=== PATIENT | male | born 1940 | race Caucasian/White ===

== ENCOUNTER 2018-02-12 01:54 | Inpatient (IN) | payer OTHER, MEDICARE ==
[~2018-02-12] VITALS: Ht 182.9 cm; Wt 91.3 kg
[2018-02-12 02:18] LABS: BASOPHILS ABSOLUTE AUTO 0.01 K/mm3 (0.00-0.23); BASOPHILS PERCENT AUTO 0 % (0-2); EOSINOPHILS ABSOLUTE AUTO 0.06 K/mm3 (0.00-0.68); EOSINOPHILS PERCENT AUTO 1 % (0-6); Hematocrit 48.3 % (37.0-53.0); Hemoglobin 16.1 g/dL (13.5-17.5); IMMATURE GRAN ABSOLUTE AUTO 0.01 K/mm3 (0.00-0.10); IMMATURE GRAN PERCENT AUTO 0 % (0-1); LYMPHOCYTES ABSOLUTE AUTO 0.83 K/mm3 (0.84-5.20); LYMPHOCYTES PERCENT AUTO 11 % (21-46); MONOCYTES ABSOLUTE AUTO 0.23 K/mm3 (0.16-1.47); MONOCYTES PERCENT AUTO 3 % (4-13); Mean Corpuscular HGB 31.6 pg (26.0-34.0); Mean Corpuscular HGB Conc 33.3 g/dL (31.5-36.5); Mean Corpuscular Volume 95 fL (80-100); Mean Platelet Volume 10.5 fL (9.1-12.4); NEUTROPHILS PERCENT AUTO 85 % (41-73); Platelet Count 138 K/mm3 (150-400); RDW Coefficient Variation 12.2 % (11.7-14.2); RDW Standard Deviation 42.4 fL (35.1-46.3); Red Blood Cell Count 5.09 M/mm3 (4.30-5.90); White Blood Cell Count 7.44 K/mm3 (4.00-11.30)
[2018-02-12 02:31] LABS: Alanine Aminotransfer (ALT/SGP 348 U/L (12-78); Albumin, Blood 3.7 g/dL (3.4-5.0); Albumin/Globulin Ratio 0.9 (0.8-1.8); Alk Phos 160 U/L (50-136); Anion Gap 7 mmol/L (6-16); Aspartate Aminotrans (AST/SGOT 512 U/L (12-37); Blood Urea Nitrogen 17 mg/dL (8-24); Bun/Creatinine Ratio 8.5 (12.0-20.0); CO2, Blood 31 mmol/L (21-32); Chloride, Blood 97 mmol/L (98-108); Creatinine, Blood 2.01 mg/dL (0.60-1.20); Ethanol (Alcohol), Blood, Med <3 mg/dL; Globulin, Blood 4.2 g/dL (2.2-4.0); Glomerular Filtration Rate 34 (60-); Glucose, Blood 128 mg/dL (70-99); Potassium, Blood 4.6 mmol/L (3.5-5.5); Sodium, Blood 135 mmol/L (136-145); Total Protein, Blood 7.9 g/dL (6.4-8.2); Troponin I <0.015 ng/mL (0.000-0.040)
[2018-02-12 02:35] LABS: Calcium, Ionized (POC) 0.84 mmol/L (1.10-1.46); Chloride (POC) 101 mmol/L (98-108); Creatinine (POC) 1.5 mg/dL (0.8-1.3); Glucose (ISTAT POC) 131 mg/dL (70-99); Hemoglobin (POC) 13.6 g/dL (13.5-17.5); Potassium (POC) 3.4 mmol/L (3.5-5.5); Sodium (POC) 144 mmol/L (135-148); Total CO2 (POC) 21 mmol/L (21-32)
[2018-02-12 02:36] LABS: International Normalized Ratio 1.04; Prothrombin Time Results 10.7 Sec (9.7-11.5)
[2018-02-12 02:37] LABS: PCO2 Arterial 40.3 mmHg (35-45); PO2 Arterial 71.4 mmHg (80-100); pH Blood Arterial 7.45 (7.35-7.45)
[2018-02-12] MEDS ORDERED: ATOR40TA PO (03:00)
[2018-02-12] MEDS ORDERED: CARV6.25 PO (03:01)
[2018-02-12] MEDS ORDERED: GABA800 PO (03:03)
[2018-02-12] MEDS ORDERED: HUMALOG KW200 UNIT/1 SC (03:04)
[2018-02-12] MEDS ORDERED: INSULANPEN SC (03:05)
[2018-02-12] MEDS ORDERED: PARO20 PO (03:07)
[2018-02-12] MEDS ORDERED: HEARTBURN RELI150 M1 PO (03:08)
[2018-02-12 03:09] LABS: Source, Urine Catheter
[2018-02-12] MEDS ORDERED: ZOLP5 PO (03:09)
[2018-02-12 03:12] LABS: Bilirubin, Urine Neg (Neg); Blood, Urine Neg (Neg); Glucose Qualitative, Urine Neg (Neg); Ketones, Urine Neg (Neg); Leukocyte Esterase, Urine Neg (Neg); Nitrite, Urine Neg (Neg); Protein, Urine Neg (Neg); Urobilinogen, Urine NORM (Normal)
[2018-02-12 03:13] LABS: Appearance, Urine Clear (Clear); Color, Urine Yellow (P-Yellow)
[2018-02-12 03:29] LABS: U Amphetamine Screen Not Detected; U Barbituate Screen Not Detected; U Benzodiazapine Screen Not Detected; U Buprenorphine Screen Not Detected; U Cannabinoids Screen DETECTED; U Cocaine Screen Not Detected; U Methadone Screen Not Detected; U Methamphetamine Screen Not Detected; U Opiates Screen Not Detected; U Oxycodone Screen Not Detected; U Phencyclidine Screen Not Detected; U Propoxyphene Screen Not Detected
[2018-02-12 07:42] LABS: Hematocrit 42.9 % (37.0-53.0); Hemoglobin 14.4 g/dL (13.5-17.5); Mean Corpuscular HGB 31.7 pg (26.0-34.0); Mean Corpuscular HGB Conc 33.6 g/dL (31.5-36.5); Mean Corpuscular Volume 95 fL (80-100); Mean Platelet Volume 10.8 fL (9.1-12.4); Platelet Count 120 K/mm3 (150-400); RDW Coefficient Variation 12.4 % (11.7-14.2); RDW Standard Deviation 42.9 fL (35.1-46.3); Red Blood Cell Count 4.54 M/mm3 (4.30-5.90)
[2018-02-12 07:59] LABS: Albumin, Blood 2.9 g/dL (3.4-5.0); Albumin/Globulin Ratio 0.9 (0.8-1.8); Bilirubin, Total 3.1 mg/dL (0.1-1.0); Bun/Creatinine Ratio 8.6 (12.0-20.0); Calcium, Blood 7.4 mg/dL (8.5-10.1); Creatinine, Blood 1.86 mg/dL (0.60-1.20); Globulin, Blood 3.3 g/dL (2.2-4.0); Potassium, Blood 4.1 mmol/L (3.5-5.5); Total Protein, Blood 6.2 g/dL (6.4-8.2)
[2018-02-13 04:00] LABS: Hematocrit 44.8 % (37.0-53.0); Hemoglobin 14.6 g/dL (13.5-17.5); Mean Corpuscular HGB 30.9 pg (26.0-34.0); Mean Corpuscular HGB Conc 32.6 g/dL (31.5-36.5); Mean Corpuscular Volume 95 fL (80-100); Mean Platelet Volume 11.2 fL (9.1-12.4); Platelet Count 104 K/mm3 (150-400); RDW Coefficient Variation 12.8 % (11.7-14.2); RDW Standard Deviation 44.3 fL (35.1-46.3); Red Blood Cell Count 4.72 M/mm3 (4.30-5.90); White Blood Cell Count 10.06 K/mm3 (4.00-11.30)
[2018-02-13 04:13] LABS: Vancomycin, Trough 10.5 ug/mL (5.0-10.0)
[2018-02-13 04:14] LABS: Alanine Aminotransfer (ALT/SGP 230 U/L (12-78); Albumin, Blood 2.5 g/dL (3.4-5.0); Albumin/Globulin Ratio 0.7 (0.8-1.8); Alk Phos 115 U/L (50-136); Anion Gap 8 mmol/L (6-16); Aspartate Aminotrans (AST/SGOT 150 U/L (12-37); Bilirubin, Total 4.4 mg/dL (0.1-1.0); Blood Urea Nitrogen 14 mg/dL (8-24); Bun/Creatinine Ratio 8.1 (12.0-20.0); CO2, Blood 23 mmol/L (21-32); CPK Creatine Kinase 65 U/L (39-308); Calcium, Blood 7.4 mg/dL (8.5-10.1); Chloride, Blood 110 mmol/L (98-108); Creatinine, Blood 1.73 mg/dL (0.60-1.20); Globulin, Blood 3.7 g/dL (2.2-4.0); Glomerular Filtration Rate 41 (60-); Glucose, Blood 103 mg/dL (70-99); Magnesium, Blood 1.9 mg/dL (1.6-2.4); Phosphorus, Blood 2.1 mg/dL (2.5-4.9); Potassium, Blood 4.2 mmol/L (3.5-5.5); Sodium, Blood 141 mmol/L (136-145); Total Protein, Blood 6.2 g/dL (6.4-8.2); Troponin I <0.015 ng/mL (0.000-0.040)
[2018-02-13 04:20] LABS: BAND PERCENT MAN 1 % (0-8); BASOPHILS PERCENT MAN 0 % (0-2); EOSINOPHILS PERCENT MAN 3 % (0-6); LYMPHOCYTES PERCENT MAN 9 % (21-46); METAMYELOCYTE PERCENT MAN 1 % (0-0); MONOCYTES PERCENT MAN 3 % (4-13); NEUTROPHILS ABSOLUTE MAN 8.45 K/mm3 (1.96-9.15); SEG NEUTROPHILS PERCENT MAN 83 % (41-73); TOTAL CELLS COUNTED 100
[2018-02-13 05:18] LABS: PCO2 Arterial 42.6 mmHg (35-45); PO2 Arterial 65.9 mmHg (80-100); pH Blood Arterial 7.36 (7.35-7.45)
[2018-02-14 04:53] LABS: PCO2 Arterial 46.8 mmHg (35-45); PO2 Arterial 67.4 mmHg (80-100); pH Blood Arterial 7.32 (7.35-7.45)
[2018-02-14 05:10] LABS: BASOPHILS ABSOLUTE AUTO 0.02 K/mm3 (0.00-0.23); BASOPHILS PERCENT AUTO 0 % (0-2); EOSINOPHILS ABSOLUTE AUTO 0.12 K/mm3 (0.00-0.68); EOSINOPHILS PERCENT AUTO 2 % (0-6); Hematocrit 42.1 % (37.0-53.0); Hemoglobin 13.7 g/dL (13.5-17.5); IMMATURE GRAN ABSOLUTE AUTO 0.02 K/mm3 (0.00-0.10); IMMATURE GRAN PERCENT AUTO 0 % (0-1); LYMPHOCYTES ABSOLUTE AUTO 1.17 K/mm3 (0.84-5.20); LYMPHOCYTES PERCENT AUTO 14 % (21-46); MONOCYTES ABSOLUTE AUTO 0.54 K/mm3 (0.16-1.47); MONOCYTES PERCENT AUTO 7 % (4-13); Mean Corpuscular HGB 31.4 pg (26.0-34.0); Mean Corpuscular HGB Conc 32.5 g/dL (31.5-36.5); Mean Corpuscular Volume 96 fL (80-100); Mean Platelet Volume 11.3 fL (9.1-12.4); NEUTROPHILS ABSOLUTE AUTO 6.39 K/mm3 (1.96-9.15); NEUTROPHILS PERCENT AUTO 77 % (41-73); Platelet Count 102 K/mm3 (150-400); RDW Coefficient Variation 12.5 % (11.7-14.2); RDW Standard Deviation 44.6 fL (35.1-46.3); Red Blood Cell Count 4.37 M/mm3 (4.30-5.90); White Blood Cell Count 8.26 K/mm3 (4.00-11.30)
[2018-02-14 05:42] LABS: Alanine Aminotransfer (ALT/SGP 160 U/L (12-78); Albumin, Blood 2.7 g/dL (3.4-5.0); Albumin/Globulin Ratio 0.7 (0.8-1.8); Alk Phos 120 U/L (50-136); Anion Gap 9 mmol/L (6-16); Aspartate Aminotrans (AST/SGOT 132 U/L (12-37); Bilirubin, Total 3.3 mg/dL (0.1-1.0); Blood Urea Nitrogen 15 mg/dL (8-24); Bun/Creatinine Ratio 8.7 (12.0-20.0); CO2, Blood 22 mmol/L (21-32); Calcium, Blood 7.7 mg/dL (8.5-10.1); Chloride, Blood 109 mmol/L (98-108); Creatinine, Blood 1.73 mg/dL (0.60-1.20); Globulin, Blood 3.7 g/dL (2.2-4.0); Glomerular Filtration Rate 41 (60-); Glucose, Blood 112 mg/dL (70-99); Phosphorus, Blood 2.7 mg/dL (2.5-4.9); Potassium, Blood 4.2 mmol/L (3.5-5.5); Sodium, Blood 140 mmol/L (136-145); Total Protein, Blood 6.4 g/dL (6.4-8.2); Vancomycin, Trough 11.3 ug/mL (5.0-10.0)
[2018-02-15 04:25] LABS: BASOPHILS ABSOLUTE AUTO 0.01 K/mm3 (0.00-0.23); BASOPHILS PERCENT AUTO 0 % (0-2); EOSINOPHILS ABSOLUTE AUTO 0.07 K/mm3 (0.00-0.68); EOSINOPHILS PERCENT AUTO 1 % (0-6); Hematocrit 41.1 % (37.0-53.0); Hemoglobin 13.8 g/dL (13.5-17.5); IMMATURE GRAN ABSOLUTE AUTO 0.02 K/mm3 (0.00-0.10); IMMATURE GRAN PERCENT AUTO 0 % (0-1); LYMPHOCYTES ABSOLUTE AUTO 1.47 K/mm3 (0.84-5.20); LYMPHOCYTES PERCENT AUTO 19 % (21-46); MONOCYTES ABSOLUTE AUTO 0.61 K/mm3 (0.16-1.47); MONOCYTES PERCENT AUTO 8 % (4-13); Mean Corpuscular HGB 31.7 pg (26.0-34.0); Mean Corpuscular HGB Conc 33.6 g/dL (31.5-36.5); Mean Corpuscular Volume 94 fL (80-100); Mean Platelet Volume 11.2 fL (9.1-12.4); NEUTROPHILS PERCENT AUTO 72 % (41-73); Platelet Count 113 K/mm3 (150-400); RDW Coefficient Variation 12.4 % (11.7-14.2); RDW Standard Deviation 43.2 fL (35.1-46.3); Red Blood Cell Count 4.36 M/mm3 (4.30-5.90); White Blood Cell Count 7.68 K/mm3 (4.00-11.30)
[2018-02-15 04:41] LABS: Albumin, Blood 2.8 g/dL (3.4-5.0); Albumin/Globulin Ratio 0.7 (0.8-1.8); Bilirubin, Total 2.9 mg/dL (0.1-1.0); Bun/Creatinine Ratio 10.2 (12.0-20.0); Calcium, Blood 7.9 mg/dL (8.5-10.1); Creatinine, Blood 1.76 mg/dL (0.60-1.20); Globulin, Blood 4.1 g/dL (2.2-4.0); Magnesium, Blood 1.9 mg/dL (1.6-2.4); Phosphorus, Blood 2.4 mg/dL (2.5-4.9); Potassium, Blood 3.6 mmol/L (3.5-5.5); Total Protein, Blood 6.9 g/dL (6.4-8.2)
[2018-02-16 04:22] LABS: BASOPHILS ABSOLUTE AUTO 0.03 K/mm3 (0.00-0.23); BASOPHILS PERCENT AUTO 1 % (0-2); EOSINOPHILS ABSOLUTE AUTO 0.12 K/mm3 (0.00-0.68); EOSINOPHILS PERCENT AUTO 2 % (0-6); Hematocrit 41.7 % (37.0-53.0); Hemoglobin 13.8 g/dL (13.5-17.5); IMMATURE GRAN ABSOLUTE AUTO 0.01 K/mm3 (0.00-0.10); IMMATURE GRAN PERCENT AUTO 0 % (0-1); LYMPHOCYTES PERCENT AUTO 26 % (21-46); MONOCYTES ABSOLUTE AUTO 0.66 K/mm3 (0.16-1.47); MONOCYTES PERCENT AUTO 10 % (4-13); Mean Corpuscular HGB 30.8 pg (26.0-34.0); Mean Corpuscular HGB Conc 33.1 g/dL (31.5-36.5); Mean Corpuscular Volume 93 fL (80-100); Mean Platelet Volume 11.1 fL (9.1-12.4); NEUTROPHILS ABSOLUTE AUTO 3.94 K/mm3 (1.96-9.15); NEUTROPHILS PERCENT AUTO 61 % (41-73); Platelet Count 128 K/mm3 (150-400); RDW Coefficient Variation 12.2 % (11.7-14.2); RDW Standard Deviation 42.2 fL (35.1-46.3); Red Blood Cell Count 4.48 M/mm3 (4.30-5.90); White Blood Cell Count 6.46 K/mm3 (4.00-11.30)
[2018-02-16 04:41] LABS: Bun/Creatinine Ratio 9.3 (12.0-20.0); Calcium, Blood 8.4 mg/dL (8.5-10.1); Creatinine, Blood 1.51 mg/dL (0.60-1.20); Potassium, Blood 3.6 mmol/L (3.5-5.5)
[2018-02-17 04:40] LABS: Bun/Creatinine Ratio 10.6 (12.0-20.0); Calcium, Blood 8.2 mg/dL (8.5-10.1); Creatinine, Blood 1.42 mg/dL (0.60-1.20); Potassium, Blood 3.4 mmol/L (3.5-5.5)
[2018-02-17] MEDS ORDERED: AMOX875 PO (11:30)
[2018-02-17] MEDS ORDERED: FURO20 PO (11:31)
== END 2018-02-17 15:45 | disposition home or self-care (01) | DRG 871 ==
LOC: ER 01:54 → ICUW 03:36 → PCU 03:36 → ICUW 04:30 → PCU 02-15 17:25
PROVIDERS: Emergency Medicine; Hospitalist; Internal Medicine; Internal Medicine Critical Care Medicine
PROC: 0BH17EZ Insertion of Endotracheal Airway into Trachea, Via Natural or Artificial Opening (ICD-10-PCS; principal; 2018-02-12)
PROC: 5A1935Z Respiratory Ventilation, Less than 24 Consecutive Hours (ICD-10-PCS; 2018-02-12)
PROC: 02HV33Z Insertion of Infusion Device into Superior Vena Cava, Percutaneous Approach (ICD-10-PCS; 2018-02-12)
PROC: B548ZZA Ultrasonography of Superior Vena Cava, Guidance (ICD-10-PCS; 2018-02-12)
DX: A40.3 Sepsis due to Streptococcus pneumoniae (principal); J69.0 Pneumonitis due to inhalation of food and vomit; R65.21 Severe sepsis with septic shock; J96.01 Acute respiratory failure with hypoxia; I50.20 Unspecified systolic (congestive) heart failure; I13.0 Hypertensive heart and chronic kidney disease with heart failure and stage 1 through stage 4 chronic kidney disease, or unspecified chronic kidney disease; E87.2 Acidosis; N17.9 Acute kidney failure, unspecified; N18.3 Chronic kidney disease, stage 3 (moderate); I25.10 Atherosclerotic heart disease of native coronary artery without angina pectoris; E11.22 Type 2 diabetes mellitus with diabetic chronic kidney disease; E78.5 Hyperlipidemia, unspecified; E11.40 Type 2 diabetes mellitus with diabetic neuropathy, unspecified; F32.9 Major depressive disorder, single episode, unspecified; I25.5 Ischemic cardiomyopathy; F41.9 Anxiety disorder, unspecified; E66.9 Obesity, unspecified; I25.2 Old myocardial infarction; Z86.73 Personal history of transient ischemic attack (TIA), and cerebral infarction without residual deficits; Z79.4 Long term (current) use of insulin; Z79.899 Other long term (current) drug therapy; Z88.8 Allergy status to other drugs, medicaments and biological substances; Z68.26 Body mass index [BMI] 26.0-26.9, adult
CPT/HCPCS: 31500; 31720; 36415; 36556; 36600; 51702; 70450; 71045; 71275; 74175; 74176; 76705; 80047; 80048; 80053; 80202; 81003; 82140; 82330; 82533; 82550; 82803; 82947; 83605; 83690; 83735; 83880; 84100; 84484; 85007; 85014; 85025; 85027; 85610; 86850; 86900; 86901; 87040; 87070; 87077; 87186; 87205; 92610; 93005; 93010; 93306; 94002; 94003; 94640; 94667; 94760; 96361; 96365; 96367; 96375; 97110; 97116; 97161; 97165; 99291-25; 99292; C1751; C9113; G0480; G8978; G8979; G8987; G8988; G8989; G8996; G8997; G8998; J0295; J0456; J0610; J0696; J1650; J1940; J1956; J2060; J2543; J3010; J3370; J3480; J7030; J7050; J7060; Q9967

== ENCOUNTER 2018-03-13 02:51 | Inpatient (IN) | payer OTHER, MEDICARE ==
[~2018-03-13] VITALS: Ht 177.8 cm; Wt 89.9 kg
[~2018-03-13 02:51] MED LIST: AMOX875 PO; ATOR40TA PO; CARV6.25 PO; FURO20 PO; GABA800 PO; HEARTBURN RELI150 M1 PO; HUMALOG KW200 UNIT/1 SC; INSULANPEN SC; PARO20 PO; ZOLP5 PO
[2018-03-13 03:07] LABS: PCO2 Arterial 53.3 mmHg (35-45); PO2 Arterial 159 mmHg (80-100); pH Blood Arterial 7.28 (7.35-7.45)
[2018-03-13 03:08] LABS: BASOPHILS ABSOLUTE AUTO 0.02 K/mm3 (0.00-0.23); BASOPHILS PERCENT AUTO 0 % (0-2); EOSINOPHILS ABSOLUTE AUTO 0.11 K/mm3 (0.00-0.68); EOSINOPHILS PERCENT AUTO 1 % (0-6); Hematocrit 47.7 % (37.0-53.0); Hemoglobin 15.4 g/dL (13.5-17.5); IMMATURE GRAN ABSOLUTE AUTO 0.03 K/mm3 (0.00-0.10); IMMATURE GRAN PERCENT AUTO 0 % (0-1); LYMPHOCYTES ABSOLUTE AUTO 0.86 K/mm3 (0.84-5.20); LYMPHOCYTES PERCENT AUTO 10 % (21-46); MONOCYTES ABSOLUTE AUTO 0.69 K/mm3 (0.16-1.47); MONOCYTES PERCENT AUTO 8 % (4-13); Mean Corpuscular HGB 31.2 pg (26.0-34.0); Mean Corpuscular HGB Conc 32.3 g/dL (31.5-36.5); Mean Corpuscular Volume 97 fL (80-100); Mean Platelet Volume 10.9 fL (9.1-12.4); NEUTROPHILS ABSOLUTE AUTO 6.75 K/mm3 (1.96-9.15); NEUTROPHILS PERCENT AUTO 80 % (41-73); Platelet Count 116 K/mm3 (150-400); RDW Coefficient Variation 12.5 % (11.7-14.2); RDW Standard Deviation 45.2 fL (35.1-46.3); Red Blood Cell Count 4.93 M/mm3 (4.30-5.90); White Blood Cell Count 8.46 K/mm3 (4.00-11.30)
[2018-03-13] MEDS ORDERED: CEPH500 PO (03:19)
[2018-03-13] MEDS ORDERED: Bactrim Ds Tab1 EACH PO (03:20)
[2018-03-13 03:26] LABS: Alanine Aminotransfer (ALT/SGP 115 U/L (12-78); Albumin, Blood 3.3 g/dL (3.4-5.0); Albumin/Globulin Ratio 0.7 (0.8-1.8); Alk Phos 112 U/L (50-136); Anion Gap 10 mmol/L (6-16); Aspartate Aminotrans (AST/SGOT 78 U/L (12-37); Bilirubin, Total 0.9 mg/dL (0.1-1.0); Blood Urea Nitrogen 16 mg/dL (8-24); Bun/Creatinine Ratio 7.7 (12.0-20.0); CO2, Blood 24 mmol/L (21-32); Calcium, Blood 7.9 mg/dL (8.5-10.1); Chloride, Blood 99 mmol/L (98-108); Creatinine, Blood 2.09 mg/dL (0.60-1.20); Globulin, Blood 4.6 g/dL (2.2-4.0); Glomerular Filtration Rate 33 (60-); Glucose, Blood 222 mg/dL (70-99); Potassium, Blood 5.2 mmol/L (3.5-5.5); Sodium, Blood 133 mmol/L (136-145); Total Protein, Blood 7.9 g/dL (6.4-8.2); Troponin I <0.015 ng/mL (0.000-0.040)
[2018-03-13 05:05] LABS: Hematocrit 46.4 % (37.0-53.0); Mean Corpuscular HGB 31.5 pg (26.0-34.0); Mean Corpuscular HGB Conc 32.3 g/dL (31.5-36.5); Mean Corpuscular Volume 98 fL (80-100); Mean Platelet Volume 10.8 fL (9.1-12.4); Platelet Count 120 K/mm3 (150-400); RDW Coefficient Variation 12.6 % (11.7-14.2); RDW Standard Deviation 45.5 fL (35.1-46.3); Red Blood Cell Count 4.76 M/mm3 (4.30-5.90); White Blood Cell Count 9.78 K/mm3 (4.00-11.30)
[2018-03-13 05:21] LABS: Albumin, Blood 3.2 g/dL (3.4-5.0); Albumin/Globulin Ratio 0.7 (0.8-1.8); Bilirubin, Total 0.7 mg/dL (0.1-1.0); Creatinine, Blood 2.38 mg/dL (0.60-1.20); Globulin, Blood 4.3 g/dL (2.2-4.0); Potassium, Blood 5.4 mmol/L (3.5-5.5); Total Protein, Blood 7.5 g/dL (6.4-8.2)
[2018-03-13 05:26] LABS: CPK Creatine Kinase 250 U/L (39-308)
[2018-03-13 05:29] LABS: Influenza A Negative (NEGATIVE); Influenza B Negative (NEGATIVE)
[2018-03-13 08:12] LABS: Source, Urine Catheter
[2018-03-13 08:22] LABS: Bilirubin, Urine Neg (Neg); Blood, Urine 1+ (Neg); Glucose Qualitative, Urine 2+ (Neg); Ketones, Urine Neg (Neg); Leukocyte Esterase, Urine Neg (Neg); Nitrite, Urine Neg (Neg); Protein, Urine 2+ (Neg); Specific Gravity, Urine 1.015 (1.003-1.022); Urobilinogen, Urine NORM (Normal)
[2018-03-13 08:39] LABS: U Amphetamine Screen Not Detected; U Barbituate Screen Not Detected; U Benzodiazapine Screen Not Detected; U Buprenorphine Screen Not Detected; U Cannabinoids Screen DETECTED; U Cocaine Screen Not Detected; U Methadone Screen Not Detected; U Methamphetamine Screen Not Detected; U Opiates Screen Not Detected; U Oxycodone Screen Not Detected; U Phencyclidine Screen Not Detected; U Propoxyphene Screen Not Detected
[2018-03-13 08:41] LABS: Appearance, Urine Hazy (Clear); Color, Urine Yellow (P-Yellow)
[2018-03-13 08:49] LABS: Spermatozoa Few /hpf
[2018-03-13 08:50] LABS: Red Blood Cells, Urine 0-2 /hpf (0-2); White Blood Cells, Urine 0-2 /hpf (0-5)
[2018-03-13 08:53] LABS: Bacteria Few /hpf; Squamous Epithelial Cells Rare /hpf (Few)
[2018-03-13 08:54] LABS: Amorphous Light (0-Heavy)
[2018-03-13 09:45] LABS: PCO2 Arterial 56.2 mmHg (35-45); PO2 Arterial 122 mmHg (80-100)
[2018-03-13 16:00] LABS: PCO2 Arterial 52.3 mmHg (35-45); PO2 Arterial 79.7 mmHg (80-100); pH Blood Arterial 7.32 (7.35-7.45)
[2018-03-14 04:50] LABS: PCO2 Arterial 48.3 mmHg (35-45); PO2 Arterial 56.2 mmHg (80-100); pH Blood Arterial 7.36 (7.35-7.45)
[2018-03-14 05:51] LABS: BASOPHILS ABSOLUTE AUTO 0.03 K/mm3 (0.00-0.23); BASOPHILS PERCENT AUTO 0 % (0-2); EOSINOPHILS ABSOLUTE AUTO 0.12 K/mm3 (0.00-0.68); EOSINOPHILS PERCENT AUTO 1 % (0-6); Hematocrit 42.1 % (37.0-53.0); Hemoglobin 13.6 g/dL (13.5-17.5); IMMATURE GRAN ABSOLUTE AUTO 0.04 K/mm3 (0.00-0.10); IMMATURE GRAN PERCENT AUTO 0 % (0-1); LYMPHOCYTES ABSOLUTE AUTO 1.37 K/mm3 (0.84-5.20); LYMPHOCYTES PERCENT AUTO 14 % (21-46); MONOCYTES ABSOLUTE AUTO 0.94 K/mm3 (0.16-1.47); MONOCYTES PERCENT AUTO 10 % (4-13); Mean Corpuscular HGB 31.7 pg (26.0-34.0); Mean Corpuscular HGB Conc 32.3 g/dL (31.5-36.5); Mean Corpuscular Volume 98 fL (80-100); Mean Platelet Volume 10.8 fL (9.1-12.4); NEUTROPHILS ABSOLUTE AUTO 7.29 K/mm3 (1.96-9.15); NEUTROPHILS PERCENT AUTO 75 % (41-73); Platelet Count 97 K/mm3 (150-400); RDW Coefficient Variation 12.7 % (11.7-14.2); RDW Standard Deviation 45.6 fL (35.1-46.3); Red Blood Cell Count 4.29 M/mm3 (4.30-5.90); White Blood Cell Count 9.79 K/mm3 (4.00-11.30)
[2018-03-14 06:18] LABS: Albumin, Blood 2.8 g/dL (3.4-5.0); Anion Gap 5 mmol/L (6-16); Blood Urea Nitrogen 19 mg/dL (8-24); Bun/Creatinine Ratio 9.4 (12.0-20.0); CO2, Blood 26 mmol/L (21-32); Calcium, Blood 7.9 mg/dL (8.5-10.1); Chloride, Blood 104 mmol/L (98-108); Creatinine, Blood 2.02 mg/dL (0.60-1.20); Glomerular Filtration Rate 34 (60-); Glucose, Blood 106 mg/dL (70-99); Phosphorus, Blood 2.3 mg/dL (2.5-4.9); Potassium, Blood 4.5 mmol/L (3.5-5.5); Sodium, Blood 135 mmol/L (136-145)
[2018-03-15 06:23] LABS: BASOPHILS ABSOLUTE AUTO 0.01 K/mm3 (0.00-0.23); BASOPHILS PERCENT AUTO 0 % (0-2); EOSINOPHILS ABSOLUTE AUTO 0.18 K/mm3 (0.00-0.68); EOSINOPHILS PERCENT AUTO 2 % (0-6); Hematocrit 43.3 % (37.0-53.0); IMMATURE GRAN ABSOLUTE AUTO 0.03 K/mm3 (0.00-0.10); IMMATURE GRAN PERCENT AUTO 0 % (0-1); LYMPHOCYTES ABSOLUTE AUTO 1.23 K/mm3 (0.84-5.20); LYMPHOCYTES PERCENT AUTO 13 % (21-46); MONOCYTES ABSOLUTE AUTO 1.01 K/mm3 (0.16-1.47); MONOCYTES PERCENT AUTO 10 % (4-13); Mean Corpuscular HGB 31.7 pg (26.0-34.0); Mean Corpuscular HGB Conc 32.3 g/dL (31.5-36.5); Mean Corpuscular Volume 98 fL (80-100); NEUTROPHILS ABSOLUTE AUTO 7.41 K/mm3 (1.96-9.15); NEUTROPHILS PERCENT AUTO 75 % (41-73); Platelet Count 99 K/mm3 (150-400); RDW Coefficient Variation 12.7 % (11.7-14.2); RDW Standard Deviation 45.8 fL (35.1-46.3); Red Blood Cell Count 4.42 M/mm3 (4.30-5.90); White Blood Cell Count 9.87 K/mm3 (4.00-11.30)
[2018-03-15 06:53] LABS: Anion Gap 7 mmol/L (6-16); Blood Urea Nitrogen 16 mg/dL (8-24); Bun/Creatinine Ratio 9.2 (12.0-20.0); CO2, Blood 26 mmol/L (21-32); Calcium, Blood 8.2 mg/dL (8.5-10.1); Chloride, Blood 102 mmol/L (98-108); Creatinine, Blood 1.74 mg/dL (0.60-1.20); Glomerular Filtration Rate 41 (60-); Glucose, Blood 125 mg/dL (70-99); Phosphorus, Blood 2.3 mg/dL (2.5-4.9); Potassium, Blood 4.4 mmol/L (3.5-5.5); Sodium, Blood 135 mmol/L (136-145)
[2018-03-15 12:39] LABS: PCO2 Arterial 44.3 mmHg (35-45); PO2 Arterial 63.7 mmHg (80-100); pH Blood Arterial 7.42 (7.35-7.45)
[2018-03-15] MEDS ORDERED: GABA300 PO (13:54)
[2018-03-15] MEDS ORDERED: LEVO750 PO (13:54)
[2018-03-15] MEDS ORDERED: ALBU2.5V5 NEB (13:55)
[2018-03-15] MEDS ORDERED: ASPI81CH PO (13:56)
[2018-03-15] MEDS ORDERED: ALBU90OI INH (13:56)
[2018-03-15] MEDS ORDERED: FLUT1DIS5 INH (13:57)
[2018-03-15] MEDS ORDERED: GABA100 PO (13:58)
[2018-03-15] MEDS ORDERED: METF500C PO (13:59)
== END 2018-03-15 15:12 | disposition home or self-care (01) | DRG 193 ==
LOC: ER 02:51 → MEDS 05:18 → ERHOLD 05:18 → ICUW 05:18 → MEDS 06:59 → ICUW 07:22 → MEDS 17:30
PROVIDERS: Emergency Medicine; Family Medicine; Internal Medicine
DX: J18.9 Pneumonia, unspecified organism (principal); J96.01 Acute respiratory failure with hypoxia; G93.40 Encephalopathy, unspecified; J96.02 Acute respiratory failure with hypercapnia; E87.2 Acidosis; N17.9 Acute kidney failure, unspecified; E87.1 Hypo-osmolality and hyponatremia; J44.1 Chronic obstructive pulmonary disease with (acute) exacerbation; J44.0 Chronic obstructive pulmonary disease with (acute) lower respiratory infection; E11.42 Type 2 diabetes mellitus with diabetic polyneuropathy; Z87.01 Personal history of pneumonia (recurrent); Z87.891 Personal history of nicotine dependence; I25.2 Old myocardial infarction; E78.5 Hyperlipidemia, unspecified; Z79.4 Long term (current) use of insulin; J44.9 Chronic obstructive pulmonary disease, unspecified; S61.012D Laceration without foreign body of left thumb without damage to nail, subsequent encounter; E86.0 Dehydration; E11.65 Type 2 diabetes mellitus with hyperglycemia; R79.89 Other specified abnormal findings of blood chemistry; N18.3 Chronic kidney disease, stage 3 (moderate); E11.22 Type 2 diabetes mellitus with diabetic chronic kidney disease; I12.9 Hypertensive chronic kidney disease with stage 1 through stage 4 chronic kidney disease, or unspecified chronic kidney disease
CPT/HCPCS: 36415; 36600; 70450; 71045; 71046; 78582; 80053; 80069; 81001; 82140; 82550; 82803; 82947; 83605; 83880; 84145; 84484; 85025; 85027; 85379; 87804; 92610; 93005; 93010; 93970; 94760; 96374; 99285-25; A9540; A9558; C9113; G8996; G8997; G8998; J1650; J1956; J2405; J2550; J7030

== ENCOUNTER 2021-04-04 13:32 | Emergency (ER) | payer OTHER ==
[~2021-04-04 13:32] MED LIST changes: +ALBU2.5V5 NEB; +ALBU90OI INH; +ASPI81CH PO; +Bactrim Ds Tab1 EACH PO; +CEPH500 PO; +FLUT1DIS5 INH; +GABA100 PO; +GABA300 PO; -INSULANPEN SC; +LEVO750 PO; +METF500C PO; +NOVOLIN 70100 UNIT/3 SC; +OMEP20ER PO
[2021-04-04] MEDS ORDERED: OXYC5 PO (18:33)
[2021-04-04] MEDS ORDERED: ATOR20 PO (18:33)
[2021-04-05] MEDS ORDERED: OMEP20ER PO (21:48)
== END 2021-04-04 13:50 | disposition left against medical advice (07) ==
LOC: ER 13:32
DX: Z53.21 Procedure and treatment not carried out due to patient leaving prior to being seen by health care provider (principal)

== ENCOUNTER 2021-04-04 16:33 | Inpatient (IN) | payer OTHER ==
[~2021-04-04] VITALS: Ht 177.8 cm; Wt 88.5 kg
[2021-04-04 17:15] LABS: BASOPHILS ABSOLUTE AUTO 0.04 K/mm3 (0.00-0.23); BASOPHILS PERCENT AUTO 0 % (0-2); EOSINOPHILS ABSOLUTE AUTO 0.09 K/mm3 (0.00-0.68); EOSINOPHILS PERCENT AUTO 1 % (0-6); Hematocrit 45.7 % (37.0-53.0); Hemoglobin 15.3 g/dL (13.5-17.5); IMMATURE GRAN ABSOLUTE AUTO 0.06 K/mm3 (0.00-0.10); IMMATURE GRAN PERCENT AUTO 0 % (0-1); LYMPHOCYTES PERCENT AUTO 12 % (21-46); MONOCYTES ABSOLUTE AUTO 0.77 K/mm3 (0.16-1.47); MONOCYTES PERCENT AUTO 6 % (4-13); Mean Corpuscular HGB 30.7 pg (26.0-34.0); Mean Corpuscular HGB Conc 33.5 g/dL (31.5-36.5); Mean Corpuscular Volume 92 fL (80-100); Mean Platelet Volume 10.5 fL (9.1-12.4); NEUTROPHILS ABSOLUTE AUTO 11.09 K/mm3 (1.96-9.15); NEUTROPHILS PERCENT AUTO 81 % (41-73); Platelet Count 207 K/mm3 (150-400); RDW Coefficient Variation 12.7 % (11.7-14.2); RDW Standard Deviation 42.7 fL (35.1-46.3); Red Blood Cell Count 4.99 M/mm3 (4.30-5.90); White Blood Cell Count 13.75 K/mm3 (4.00-11.30)
[2021-04-04 17:20] LABS: Source, Urine Clean Catch
[2021-04-04 17:31] LABS: Albumin, Blood 3.5 g/dL (3.4-5.0); Albumin/Globulin Ratio 0.7 (0.8-1.8); Bilirubin, Total 1.2 mg/dL (0.1-1.0); Bun/Creatinine Ratio 10.3 (12.0-20.0); Calcium, Blood 9.5 mg/dL (8.5-10.1); Creatinine, Blood 2.43 mg/dL (0.60-1.20); Globulin, Blood 4.8 g/dL (2.2-4.0); Potassium, Blood 4.8 mmol/L (3.5-5.5); Total Protein, Blood 8.3 g/dL (6.4-8.2)
[2021-04-04 17:36] LABS: Appearance, Urine Cloudy (Clear); Bilirubin, Urine Neg (Neg); Blood, Urine 5+ (Neg); Color, Urine Red (P-Yellow); Glucose Qualitative, Urine Neg (Neg); Ketones, Urine Neg (Neg); Leukocyte Esterase, Urine 3+ (Neg); Nitrite, Urine Pos (Neg); Protein, Urine 4+ (Neg); Urobilinogen, Urine NORM (Normal); pH, Urine 6.5 (5.0-8.0)
[2021-04-04 17:41] LABS: Red Blood Cells, Urine TNTC /hpf (0-2)
[2021-04-04 17:49] LABS: Squamous Epithelial Cells Rare /hpf (Few)
[2021-04-04 17:50] LABS: Bacteria Mod /hpf
[2021-04-04] MEDS ORDERED: OXYC5 PO (18:33)
[2021-04-04] MEDS ORDERED: ATOR20 PO (18:33)
[2021-04-04 23:05] LABS: Hematocrit 42.6 % (37.0-53.0); Hemoglobin 14.2 g/dL (13.5-17.5); Mean Corpuscular HGB 30.4 pg (26.0-34.0); Mean Corpuscular HGB Conc 33.3 g/dL (31.5-36.5); Mean Corpuscular Volume 91 fL (80-100); Mean Platelet Volume 10.6 fL (9.1-12.4); Platelet Count 180 K/mm3 (150-400); RDW Coefficient Variation 12.5 % (11.7-14.2); RDW Standard Deviation 41.6 fL (35.1-46.3); Red Blood Cell Count 4.67 M/mm3 (4.30-5.90); White Blood Cell Count 11.99 K/mm3 (4.00-11.30)
[2021-04-05 08:46] LABS: BASOPHILS ABSOLUTE AUTO 0.03 K/mm3 (0.00-0.23); BASOPHILS PERCENT AUTO 0 % (0-2); EOSINOPHILS ABSOLUTE AUTO 0.23 K/mm3 (0.00-0.68); EOSINOPHILS PERCENT AUTO 2 % (0-6); Hematocrit 41.3 % (37.0-53.0); Hemoglobin 13.6 g/dL (13.5-17.5); IMMATURE GRAN ABSOLUTE AUTO 0.05 K/mm3 (0.00-0.10); IMMATURE GRAN PERCENT AUTO 0 % (0-1); LYMPHOCYTES ABSOLUTE AUTO 2.94 K/mm3 (0.84-5.20); LYMPHOCYTES PERCENT AUTO 23 % (21-46); MONOCYTES ABSOLUTE AUTO 1.18 K/mm3 (0.16-1.47); MONOCYTES PERCENT AUTO 9 % (4-13); Mean Corpuscular HGB 30.4 pg (26.0-34.0); Mean Corpuscular HGB Conc 32.9 g/dL (31.5-36.5); Mean Corpuscular Volume 92 fL (80-100); Mean Platelet Volume 10.9 fL (9.1-12.4); NEUTROPHILS ABSOLUTE AUTO 8.27 K/mm3 (1.96-9.15); NEUTROPHILS PERCENT AUTO 65 % (41-73); Platelet Count 174 K/mm3 (150-400); RDW Coefficient Variation 12.6 % (11.7-14.2); RDW Standard Deviation 42.5 fL (35.1-46.3); Red Blood Cell Count 4.48 M/mm3 (4.30-5.90)
[2021-04-05 09:02] LABS: Albumin, Blood 2.9 g/dL (3.4-5.0); Albumin/Globulin Ratio 0.7 (0.8-1.8); Bilirubin, Total 1.3 mg/dL (0.1-1.0); Bun/Creatinine Ratio 9.4 (12.0-20.0); Calcium, Blood 8.9 mg/dL (8.5-10.1); Creatinine, Blood 2.35 mg/dL (0.60-1.20); Globulin, Blood 4.4 g/dL (2.2-4.0); Potassium, Blood 4.3 mmol/L (3.5-5.5); Total Protein, Blood 7.3 g/dL (6.4-8.2)
[2021-04-05 14:58] LABS: Hematocrit 39.7 % (37.0-53.0); Hemoglobin 13.1 g/dL (13.5-17.5)
[2021-04-05] MEDS ORDERED: OMEP20ER PO (21:48)
[2021-04-05 23:00] LABS: Hematocrit 38.5 % (37.0-53.0); Hemoglobin 12.9 g/dL (13.5-17.5)
[2021-04-06 04:50] LABS: BASOPHILS ABSOLUTE AUTO 0.04 K/mm3 (0.00-0.23); BASOPHILS PERCENT AUTO 0 % (0-2); EOSINOPHILS PERCENT AUTO 3 % (0-6); Hematocrit 39.7 % (37.0-53.0); Hemoglobin 12.9 g/dL (13.5-17.5); IMMATURE GRAN ABSOLUTE AUTO 0.06 K/mm3 (0.00-0.10); IMMATURE GRAN PERCENT AUTO 1 % (0-1); LYMPHOCYTES ABSOLUTE AUTO 2.71 K/mm3 (0.84-5.20); LYMPHOCYTES PERCENT AUTO 22 % (21-46); MONOCYTES ABSOLUTE AUTO 1.05 K/mm3 (0.16-1.47); MONOCYTES PERCENT AUTO 9 % (4-13); Mean Corpuscular HGB 30.6 pg (26.0-34.0); Mean Corpuscular HGB Conc 32.5 g/dL (31.5-36.5); Mean Corpuscular Volume 94 fL (80-100); Mean Platelet Volume 10.9 fL (9.1-12.4); NEUTROPHILS ABSOLUTE AUTO 8.05 K/mm3 (1.96-9.15); NEUTROPHILS PERCENT AUTO 66 % (41-73); Platelet Count 167 K/mm3 (150-400); RDW Coefficient Variation 12.8 % (11.7-14.2); RDW Standard Deviation 44.3 fL (35.1-46.3); Red Blood Cell Count 4.22 M/mm3 (4.30-5.90); White Blood Cell Count 12.21 K/mm3 (4.00-11.30)
[2021-04-06 10:46] LABS: Hematocrit 41.8 % (37.0-53.0); Hemoglobin 13.8 g/dL (13.5-17.5)
[2021-04-06 11:29] LABS: Albumin, Blood 3.1 g/dL (3.4-5.0); Albumin/Globulin Ratio 0.6 (0.8-1.8); Bilirubin, Total 1.2 mg/dL (0.1-1.0); Bun/Creatinine Ratio 11.5 (12.0-20.0); Calcium, Blood 9.5 mg/dL (8.5-10.1); Creatinine, Blood 2.62 mg/dL (0.60-1.20); Globulin, Blood 4.8 g/dL (2.2-4.0); Potassium, Blood 4.9 mmol/L (3.5-5.5); Total Protein, Blood 7.9 g/dL (6.4-8.2)
[2021-04-06 16:44] LABS: Hematocrit 39.4 % (37.0-53.0); Hemoglobin 12.7 g/dL (13.5-17.5)
== END 2021-04-06 19:43 | disposition short-term general hospital (02) | DRG 699 ==
LOC: ER 16:33 → MEDS 16:34 → ER 04-05 00:20 → MEDS 04-05 00:20
PROVIDERS: Internal Medicine; Physician Assistant; Student in an Organized Health Care Education/Training Program; ADMIT Internal Medicine
DX: N28.89 Other specified disorders of kidney and ureter (principal); D62 Acute posthemorrhagic anemia; C64.1 Malignant neoplasm of right kidney, except renal pelvis; R31.0 Gross hematuria; I25.10 Atherosclerotic heart disease of native coronary artery without angina pectoris; E11.22 Type 2 diabetes mellitus with diabetic chronic kidney disease; E11.42 Type 2 diabetes mellitus with diabetic polyneuropathy; N13.0 Hydronephrosis with ureteropelvic junction obstruction; R33.8 Other retention of urine; K21.9 Gastro-esophageal reflux disease without esophagitis; E78.5 Hyperlipidemia, unspecified; I12.9 Hypertensive chronic kidney disease with stage 1 through stage 4 chronic kidney disease, or unspecified chronic kidney disease; N18.30 Chronic kidney disease, stage 3 unspecified; Z79.82 Long term (current) use of aspirin; Z88.5 Allergy status to narcotic agent; Z87.891 Personal history of nicotine dependence; Z98.41 Cataract extraction status, right eye; Z85.118 Personal history of other malignant neoplasm of bronchus and lung; I25.2 Old myocardial infarction
CPT/HCPCS: 36415; 51700; 51702; 71045; 74176; 80053; 81001; 82947; 83690; 85014; 85018; 85025; 85027; 87086; 96365; 96375; 96376; 99285-25; A9270; C9113; J0696; J1170; J1815; J2270; J2405; J2550; J3010; J7030; J7050

== ENCOUNTER 2021-04-26 16:11 | Emergency (ER) | payer OTHER ==
[~2021-04-26] VITALS: Ht 177.8 cm; Wt 83.9 kg
[~2021-04-26 16:11] MED LIST changes: +ATOR20 PO; +OXYC5 PO
[2021-04-26] MEDS ORDERED: Roxicodone5 MG PO (18:19)
== END 2021-04-26 18:35 | disposition home or self-care (01) ==
LOC: ER 16:11
DX: G89.3 Neoplasm related pain (acute) (chronic) (principal); R10.30 Lower abdominal pain, unspecified; I12.9 Hypertensive chronic kidney disease with stage 1 through stage 4 chronic kidney disease, or unspecified chronic kidney disease; E11.22 Type 2 diabetes mellitus with diabetic chronic kidney disease; N18.30 Chronic kidney disease, stage 3 unspecified; E11.40 Type 2 diabetes mellitus with diabetic neuropathy, unspecified; Z79.4 Long term (current) use of insulin; Z79.82 Long term (current) use of aspirin; Z79.899 Other long term (current) drug therapy; Z87.891 Personal history of nicotine dependence
CPT/HCPCS: 96374; 99285-25; A9270; J1170

== ENCOUNTER 2021-04-28 05:11 | Inpatient (IN) | payer OTHER ==
[~2021-04-28] VITALS: Ht 177.8 cm; Wt 83.0 kg
[~2021-04-28 05:11] MED LIST changes: +Roxicodone5 MG PO
[2021-04-28 06:40] LABS: BASOPHILS ABSOLUTE AUTO 0.02 K/mm3 (0.00-0.23); BASOPHILS PERCENT AUTO 0 % (0-2); EOSINOPHILS ABSOLUTE AUTO 0.01 K/mm3 (0.00-0.68); EOSINOPHILS PERCENT AUTO 0 % (0-6); Hematocrit 32.5 % (37.0-53.0); Hemoglobin 10.6 g/dL (13.5-17.5); IMMATURE GRAN ABSOLUTE AUTO 0.03 K/mm3 (0.00-0.10); IMMATURE GRAN PERCENT AUTO 0 % (0-1); LYMPHOCYTES ABSOLUTE AUTO 0.93 K/mm3 (0.84-5.20); LYMPHOCYTES PERCENT AUTO 8 % (21-46); MONOCYTES ABSOLUTE AUTO 0.74 K/mm3 (0.16-1.47); MONOCYTES PERCENT AUTO 7 % (4-13); Mean Corpuscular HGB 30.3 pg (26.0-34.0); Mean Corpuscular HGB Conc 32.6 g/dL (31.5-36.5); Mean Corpuscular Volume 93 fL (80-100); Mean Platelet Volume 10.1 fL (9.1-12.4); NEUTROPHILS ABSOLUTE AUTO 9.39 K/mm3 (1.96-9.15); NEUTROPHILS PERCENT AUTO 84 % (41-73); Platelet Count 248 K/mm3 (150-400); RDW Coefficient Variation 13.7 % (11.7-14.2); RDW Standard Deviation 46.2 fL (35.1-46.3); White Blood Cell Count 11.12 K/mm3 (4.00-11.30)
[2021-04-28 06:57] LABS: Bun/Creatinine Ratio 8.6 (12.0-20.0); Calcium, Blood 10.7 mg/dL (8.5-10.1); Creatinine, Blood 2.55 mg/dL (0.60-1.20); Potassium, Blood 4.9 mmol/L (3.5-5.5)
--- NOTE | 2021-04-28 10:16 | NUR ---
Pt alert but very anxious and fatigued. Pt complains of great pressure to back and neck and deep pressure in pelvic area. He has not had a bowel movment in many days. He has a headache and ringing in his ears. Some difficulty swallowing. He is haveing terrible nausea and heartburn. He is short of breath and sleep deprived due to pain. Spoke with the home health nurse who has been caring for him She states his frail and forgetfull. They live in a trailer. [facility] him some symptom control. Will follow up with care manger.
--- NOTE | 2021-04-28 10:44 | NUR ---
pt resting and much more comfortable. plan is hospice admit at facility ot here.
[2021-04-28 18:01] LABS: SARS-Cov-2 (COVID-19) PCR, MMC NEGATIVE (NEGATIVE)
--- NOTE | 2021-04-28 18:18 | NUR ---
ASSUMED CARE OF PT UPON HIS ARRIVAL FROM ED AT 1713. ABLE TO AMBULATE FROM GURNEY TO BED WITH SBA. C/O 6/10 GENERALIZED PAIN. ON O2 @ 4 L/MIN NC, WHICH IS HIS HOME DOSE. A&O X 3, PLEASANT. COTE CATHETER WITH MINIMAL HEMATURIA IN BAG, NOT CHANGED IN ED. LBM UNKNOWN, CAN GET TO BSC INDEPENDENTLY. SETTLED IN TO BED, CALL LIGHT IN REACH.
--- NOTE | 2021-04-29 04:22 | NUR ---
SHIFT SUMMARY PT IS AA&OX3. NOACUTE CHANGES ON THIS ASHIFT. PT SLEPT MOST OF THE SHIFT. PT WAS COOPERATIVE WITH CARE. MEDS ADMINISTERED PER EMAR. ADLS PROVIDED. SAFETY MEASURES IN PLACE. WILL CONTINUE TO MONITOR.
[2021-04-29 05:00] LABS: BASOPHILS ABSOLUTE AUTO 0.02 K/mm3 (0.00-0.23); BASOPHILS PERCENT AUTO 0 % (0-2); EOSINOPHILS ABSOLUTE AUTO 0.39 K/mm3 (0.00-0.68); EOSINOPHILS PERCENT AUTO 5 % (0-6); Hematocrit 33.4 % (37.0-53.0); Hemoglobin 10.3 g/dL (13.5-17.5); IMMATURE GRAN ABSOLUTE AUTO 0.03 K/mm3 (0.00-0.10); IMMATURE GRAN PERCENT AUTO 0 % (0-1); LYMPHOCYTES ABSOLUTE AUTO 1.68 K/mm3 (0.84-5.20); LYMPHOCYTES PERCENT AUTO 22 % (21-46); MONOCYTES ABSOLUTE AUTO 0.75 K/mm3 (0.16-1.47); MONOCYTES PERCENT AUTO 10 % (4-13); Mean Corpuscular HGB 29.9 pg (26.0-34.0); Mean Corpuscular HGB Conc 30.8 g/dL (31.5-36.5); Mean Corpuscular Volume 97 fL (80-100); Mean Platelet Volume 10.5 fL (9.1-12.4); NEUTROPHILS ABSOLUTE AUTO 4.86 K/mm3 (1.96-9.15); NEUTROPHILS PERCENT AUTO 63 % (41-73); Platelet Count 202 K/mm3 (150-400); RDW Coefficient Variation 13.9 % (11.7-14.2); RDW Standard Deviation 48.4 fL (35.1-46.3); Red Blood Cell Count 3.45 M/mm3 (4.30-5.90); White Blood Cell Count 7.73 K/mm3 (4.00-11.30)
[2021-04-29 05:40] LABS: Albumin/Globulin Ratio 0.4 (0.8-1.8); Bilirubin, Total 0.8 mg/dL (0.1-1.0); Bun/Creatinine Ratio 8.1 (12.0-20.0); Calcium, Blood 9.8 mg/dL (8.5-10.1); Creatinine, Blood 2.6 mg/dL (0.60-1.20); Globulin, Blood 4.8 g/dL (2.2-4.0); Potassium, Blood 4.7 mmol/L (3.5-5.5); Total Protein, Blood 6.8 g/dL (6.4-8.2)
--- NOTE | 2021-04-29 11:31 | NUR ---
Pt resing at bedside. He is still painfull but states pain much better control. He was able to get some sleep.affect much less stressed. will meet with them this afternoon to have a phone consult with oncologist in [place] at 3pm. hope is to get him home or placed with support in place. Home health has expressed concerns on home safety
--- NOTE | 2021-04-29 17:29 | NUR ---
Pt resting more today until this afternoon. Pt fatigued and frail fell in the hallway of the hospital and had to be taken to ER. She fractured her arm. We met in his room after her arm was splinted and dischareged. We had a 4pm confrence call with the oncologist from [facility]. The oncoogist offered immunosuppressive therapy if he could get better and was very unsure he could tolerate the treatment. The patients was understanding and steered conversation to hospice. Pt was soon bargaining and stated he had an appointment with oncology her in [place] next week and wanted to hear what they had to say. They did not know if it was with onconolgist or radiologist. The wanted to know what the thought would be offered. Advised I could not say but it would be palliative. As the oncologist on the phone suggested. We then discussed hospice care. Advised her to go home and rally the troups. They had not told their children he was in the hospital and now had to realy she was injured. Tomi live in a trailer and was unsure how she would manage her ADL's. Will update the [facility] customer service. pt needs hospice and mange for both of them. Might be good to get them closer to family will continue supportive visits and symtom management.
--- NOTE | 2021-04-29 18:20 | NUR ---
SHIFT SUMMARY: NO ACUTE EVENTS. DID FINALLY HAVE BM TODAY. C/O 8-10 GENERALIZED PAIN; MEDICATED PER EMAR WITH SOME RELIEF, BUT MAY BENEFIT FROM FENTANYL PATCH FOR BETTER RELIEF. CHECKING CBG, BUT NO INSULIN ORDERED. ON O2 @ 4 L/MIN NC, HIS BASELINE DOSE. COTE DRAINING BLOODY URINE, NO CLOTS OBSERVED. CARLINE VISITED TODAY. PALLIATIVE CARE FOLLOWING.
--- NOTE | 2021-04-30 06:35 | NUR ---
PATIENT REMAINS QUITE PAINFUL THROUGHOUT THE NIGHT. SCHEDULED OXYCONTIN AT HS, 2MG PO DILAUDID AUGMENTED WITH 3 DOSES OF IV FENTANYL FOR BREAKTHROUGH. BRITT WAS SHAKING AND COLD EACH TIME HE WOULD CALL FOR PAIN MEDICATION. PAIN LAST NIGHT WAS PRIMARILY RIGHT ANTERIOR CHEST AND SHOULDER AREA. HE HAS IN THE PAST HAD DIFFICULTY WITH HIS RIGHT ROTATOR CUFF. WORRIED ABOUT HIS CARLINE, BRITT WAS CALLING HER AT 0230 AND VERY CONCERNED THAT SHE WASN'T PICKING UP UNTIL I EXPLAINED THE TIME.
--- NOTE | 2021-04-30 17:52 | NUR ---
SHIFT SUMMARY PATIENT IS ALERT AND ORIENTED, AND COOPERATIVE WITH CARE. PATIENT IS ON 4LPM VIA NASAL CANNUAL SATTING ABOVE 90% PATIENT HAS A COTE PATENT AND DRAINING BROWN COLORED URINE TO GRAVITY. PATIENT'S PAIN WAS MANAGED THIS SHIFT PER THE MAR FOR PAIN AND A KPAD WAS APPLIED TO THE PATIENT'S SHOULDER. PATIENT WILL CALL TO MAKE NEEDS KNOWN, SOMETIMES YELLS OUT. PATIENT HAS TALKED WITH THEIR SPOUSE OVER THE PHONE TODAY. NO ACUTE CHANGES THIS SHIFT, VITAL SIGNS STABLE. THIS NURSE WILL CARE FOR PATIENT UNTIL SHIFT REPORT IS GIVEN TO ONCOMING NURSE.
--- NOTE | 2021-04-30 18:17 | NUR ---
Pt has slept most of the day today. His remained at home for the day as she fell yesterday and broke her arm. She was seen in the ED here, and came back to his room afterwards for a short time before returning home. We did chat a bit about hospice, and Inge states under no circumstances is patient going to be placed outside of their home for hospice.
--- NOTE | 2021-05-01 04:29 | NUR ---
SHIFT SUMMAY PT HAS SLEPT MOST OF THE NIGHT, MEDICATED FOR PAIN HS WITH EFFECT. PT HAS DENIED NEEDS WHEN ASKED. PAIN IS WELL MANAGED THIS SHIFT. VITALS ARE STABLE. NO ACUTE CHANGES TO REPORT OVERNIGHT. BED IN LOWEST POSITION, CALL LIGHT WITHIN REACH.
[2021-05-01 06:18] LABS: Hematocrit 29.5 % (37.0-53.0); Hemoglobin 9.5 g/dL (13.5-17.5)
[2021-05-01 07:01] LABS: Bun/Creatinine Ratio 9.9 (12.0-20.0); Creatinine, Blood 2.84 mg/dL (0.60-1.20); Potassium, Blood 4.6 mmol/L (3.5-5.5)
--- NOTE | 2021-05-01 12:32 | NUR ---
Pt seen by Dr. Ziegler today, and reports pain has continued to be an issue. He c/o 12/27 pain, mainly in R shoulder and neck. However, yesterday was a good day in terms of pain control. Reviewed MAR with pharmacist and she recommends 12mcg Fentanyl patch to replace pt's current scheduled Oxycontin and prn Fentanyl doses. Spoke to the bedside HARSHAL Wilcox, and she v/u that Fentanyl patch takes time to reach it's therapeutic level. With that in mind, she will continue to use prn IV Fentanyl only if pain not relieved with Fentanyl Patch and PO Dilauded, as pt will not be using IV pain medications at home, and he will be going home with hospice on Tuesday, May 04. Pt's bowel care regimen appears to be working well at this time.
--- NOTE | 2021-05-01 13:30 | NUR ---
Late Entry from 04/28/2021 at 1015: Patient is a current home health patient who was transferred to [facility] on 04/28/2021 due to intractable pain. Patient was to be admitted to [facility] on Tuesday- 05/01/2021. Plan is for patient is to discharge to either a facility- [facility] or [facility] ([facility]) with orders for hospice and family elected [facility]. Gathered documentation for referral (face sheet, labs, imaging, progress notes, palliative care note, and H&P) and sent to [facility] disability coordinator (Rik Hamilton) for review. Will continue to monitor and follow for discharge. Jigna Smith Referral Liaison
--- NOTE | 2021-05-01 13:30 | NUR ---
Late Entry from at [id number]: Met with patient, patient's (Inge Fang), and patient's [id number] (Savi) to further discuss hospice services and the election of [facility]. Patient and family are agreeable to the above. Discussed what hospice is (reserved for patients with a terminal diagnosis with life expectancy of 6 months or less). Discussed that some patients exceed the 6 months expectancy and stay on service and some patients stabilize and come off hospice. Patient and family verbalized understanding of the above. Discussed with patient and family that hospice service focuses on quality of life at the end of life and that rather than measuring the quantity of days, the quality of those days would be measured. Discussed with patient and family that with hospice service the goal would be to keep the patient out of the hospital and comfortable by managing symptoms at home. Patient and family verbalized understanding. Discussed the people, prescriptions, and equipment of hospice. People- discussed the team of people and their roles (RNs, chaplains, therapists, LCSWs, CNAs, and volunteers) that would be there to support not only the patient but also their family during this time. Explained to the patient and family that the team would be custom tailored to the patient and family's needs during this time. Patient and family verbalized understanding. Prescriptions- discussed that we utilize a mail order pharmacy ([facility]) to provide medications related to the hospice diagnosis and for symptom management. All other medications that patient chose to stay on would be patient's and/or patient's family's responsibility to provide and pay for. Patient and family verbalized understanding. Discussed that upon discharge patient would be given three prescriptions, one for morphine 20mg/mL #30mL (0.25mL - 1mL PO/SL Q1H PRN SOB/pain), one for lorazepam 0.5mg #20 (1 - 2 PO Q4H PRN anxiety), and one for hyoscyamine 0.125mg SL tablets #30 (1 SL Q2H PRN secretions). Explained to the patient and family that as patient would not yet be admitted to hospice service at the time of discharge those prescriptions would be patient/patient's family's responsibility to fill and pay for. Patient and family verbalized understanding. Equipment- discussed with patient and family that we contract through [employer] to provide DME such as hospital beds, commodes, etc. to patient. Wrote order for DME (oxygen and e-tank at 1-5 LPM) and sent to [facility] for delivery on Tuesday- 05/04/2021. Patient and family verbalized understanding. Discussed with patient and family that once patient was admitted onto hospice services the goal would be for them to contact us ([facility]) over contacting 911 or presenting back to the hospital/ED. Patient and family verbalized understanding. Discussed the tentative discharge plans for Tuesday- 05/04/2021 at 1200 with preferred mode of transportation- medical transport via wheelchair. Explained to patient and family that I would arrange transportation for patient. Patient and family verbalized understanding. Offered a chance for patient and family to ask questions regarding the above of which there were none. Will continue to monitor and follow as appropriate for discharge. Jigna Smith Referral Liaison
--- NOTE | 2021-05-01 16:10 | NUR ---
SHIFT SUMMARY PATIENT MEDICATED FOR PAIN X2. PATIENT DENIES NAUSEA AND SHORTNESS OF BREATH. PATIENT ON 4L OF O2 VIA N/C. PATIENT MAINTAINING SATS AT 96%. PATIENT IS A SBA WITH A FWW TO THE [facility]. PATIENT COTE IS PATENT AND DRAINING DARK URINE. PATIENT PAIN MEDICATIONS ADJUSTED TO BETTER CONTROL PAIN. FENTANYL PATCH ADDED. PALLIATIVE CARE MET WITH PATIENT. PLAN IS TO DISCHARGE HOME WITH HOSPICE ON TUESDAY. PATIENT SLEPT MOST OF AFTERNOON. PATIENT VISITED IN MORNING. PATIENT IS EATING AND DRINKING WELL. PATIENT IS PLEASANT AND COOPERATIVE WITH CARE.
--- NOTE | 2021-05-02 03:57 | NUR ---
SHIFT SUMMARY JOHN HAD ONE INSTANCE OF CRYING OUT FOR "HELP" AND REQUESTING PAIN MEDICATION. COTE IN PLACE AND DRAINING DARK URINE. 1 PERSON ASSIST TO BSC. TELEMETRY DC'D YESTERDAY BUT WITH NEW ONSET A-FIB. CHRONIC PAIN TO BACK, RIGHT SHOULDER AND NECK. A&O X4. PLAN IS TO D/C TO HOSPICE, POSSIBLY AT HOME. IV ACCESS IN RIGHT HAND. 4LPM VIA NASAL CANNULA TO MAINTAIN O2 SATS. HEATING PAD APPLIED TO RIGHT SHOULDER PROVIDED PAIN RELIEF. BED ALARM ON, WILL CONTINUE TO MINITOR.
--- NOTE | 2021-05-02 09:31 | NUR ---
Supportive visit this AM. Pt resting in bed talking on the phone upon arrival. Pt reports 7/10 pain in his back and right shoulder. Offered therapeutic listening. Spoke with Dr Gomes and discussed case. Improved pain management noted. Palliative Care will remain available.
--- NOTE | 2021-05-02 17:52 | NUR ---
SHIFT SUMMARY PATIENT MEDICATED FOR PAIN X3. MEDICATED X2 WITH PO DILAUDID. MEDICATED X1 WITH IV FENTANYL. PATIENT DENIES NAUSEA AND SHORTNESS OF BREATH. PATIENT ON 4L VIA N/C, SATS ABOVE 95%. JAVY PEÑAEY IS PATENT AND DRAINING DARK URINE. PATIENT 1 PERSON ASSIST WITH FWW TO BSC. PATIENT IS EATING AND DRINKING WELL. PATIENT IS PLEASANT AND COOPERATIVE WITH CARE.
--- NOTE | 2021-05-03 07:13 | NUR ---
SHIFT SUMMARY PT WAS NOT ABLE TO SLEEP WELL THIS EVENING. HE REQUIRED MORE FREQUENT PAIN MEDICATION, AND ATTEMPTED NON-PHARMACOLOGIC INTERVENTIONS SUCH HEATING PADS/ICE PACKS/REPOSITIONING/DISTRACTION BUT WAS NOT ABLE TO SLEEP. REMAINS PLEASANT AND COOPERATIVE WITH STAFF. APPEARED DEPRESSED AND MADE MANY STATEMENTS OF MISSING HIS OF 50 YEARS, WHO LIVES AT HOME. RN REQUESTED THAT DAY SHIFT DISCUSS PAIN MEDICATION WITH PALLIATIVE CARE.
--- NOTE | 2021-05-03 13:09 | NUR ---
Pt alert but speech slower. Still having the shoulder pain but much improved. Pt on oxygen. less active. Pt and fmaily at bedside. His has apoointment tomorrow for cast on arm. PT is supposed to go home tomorrow on hospice. [facility] pt lives in small trailer. is injured placement may be better option so she can visit with him. Children will not be here for a week. pt is 100 service connected vet. May be better to do placment until children come and can help.
--- NOTE | 2021-05-03 18:10 | NUR ---
COMFORT SUMMARY PATIENT PLACED ON COMFORT CARE TODAY. PENDING HOSPICE DISCHARGE TOMORROW. PATIENT CONFUSED AND ANXIOUS IN THE MORNING. PATIENT VERY CONCERNED ABOUT WHERE HIS IS. PAIN MEDICATIONS ADJUSTED. PATIENT MEDICATED FOR PAIN X4. PATIENT TOOK OXYGEN OFF LATE AFTERNOON AND DID NOT WANT TO PUT IT BACK ON. PATIENT SEEMS TO BE INCREASINGLY CONFUSED. COTE IS PATENT AND DRAINING DARK URINE.
--- NOTE | 2021-05-03 22:26 | NUR ---
PT ASLEEP WITH EYES CLOSED, ALLOWING PLENTY OF TIME FOR REST.
--- NOTE | 2021-05-04 02:00 | NUR ---
PT SLEEPING. NO C/O PAIN OR DISCOMFORT.
--- NOTE | 2021-05-04 02:01 | NUR ---
PT SLEEPING, NO C/O PAIN OR DISCOMFORT.
--- NOTE | 2021-05-04 02:02 | NUR ---
PT SLEEPING, WEARING OXYGEN 4LPM VIA NC. NO C/O PAIN OR SX OF DISCOMFORT.
--- NOTE | 2021-05-04 04:15 | NUR ---
SHIFT SUMMARY BRITT REQUIRED ONE DOSE OF PRN IV FENTANYL EARLY IN THE SHIFT. SINCE THEN, HE TRIED TO GET OUT OF BED ONCE TO "GO HOME" AND STATED, "I'VE BEEN WAITING FOR DAYS..." HE WAS REDIRECTABLE WITH A SNACK AND A PHONE CALL TO HIS . SINCE THEN, BRITT HAS SLEPT WELL WITH NO C/O PAIN OR SX OF DISCOMFORT. COTE IS PATENT AND DRAINING DARK URINE.
--- NOTE | 2021-05-04 05:15 | NUR ---
PT WEARING OXYGEN AT 4LPM VIA MARLI, RN ASSISTED PT TO CALL HIS CARLINE. PT STATES REPEATEDLY, "WHAT DO I HAVE TO DO TO GO HOME?" AFTER PHONE CALL, JOHN IS GIVEN VANILLA PUDDING, WHICH HE SEEMED TO ENJOY.
--- NOTE | 2021-05-04 09:23 | NUR ---
Called to deshaun wright on her. Hospice staff concerned that she may not be able to manage patient at home with her injury. She stated her daughter has managed to come down to stay with them both and her ister in law will also stay with them. pt son and DIL will be here end of week. pt 100% service connected may quailfy for home visits in addition to hospice team. coordinator of evaluation to follow up.
[2021-05-04] MEDS ORDERED: FENTANYL1 EA10 TOP (10:14)
[2021-05-04] MEDS ORDERED: DOCU100 PO (10:15)
[2021-05-04] MEDS ORDERED: LORA.5 PO (10:15)
[2021-05-04] MEDS ORDERED: HYOSYNE0.125 MG/1 PO (10:16)
[2021-05-04] MEDS ORDERED: MIRALAX17 GM PO (10:16)
[2021-05-04] MEDS ORDERED: SENN187 PO (10:16)
[2021-05-04] MEDS ORDERED: HYDMOR2 PO (10:17)
--- NOTE | 2021-05-04 12:15 | NUR ---
Patient is to discharge at 1200 with orders for hospice. Contacted [facility] ([facility]) to arrange wheelchair transport to patient's residence. Pick-up at 1230 will be provided by the above. Faxed copy of face sheet, [facility] travel form, and DNR status to the above. Placed copies of the above in nurse locomotive observer for manager transport. Notified nurse menagerie caretaker (Collette Benedict), ACC (Isabel Díaz), Charge RNs (Carolyn Louis and Parul Shirley), and bedside RN (Eduardo Dahl) of the above. All are agreeable to the above. Requested discharge orders from hospitalist (Dr. Ziegler). Provided hard copy prescriptions for morphine and lorazepam to [facility] ([facility]) on 05/04/2021. Faxed copies of discharge order and med list to [facility] counter clerk. No further interventions required. Jigna Smith Referral Liaison
--- NOTE | 2021-05-04 13:49 | NUR ---
DISCHARGE SUMMARY PATIENT DISCHARGED TO HOME ON HOSPICE. PATIENT ALERT AND ORIENTED THROUGHOUT THIS SHIFT FOR PAIN. PATIENT IS UP TO BSC WITH ASSISTANCE THIS SHIFT. IV REMOVED THIS MORNING DUE TO NOT FLUSHING. COTE CATHETER IN PLACE FOR PATIENT COMFORT. PATIENT TRANSPORTED HOME VIA WHEELCHAIR VAN.
== END 2021-05-04 13:27 | disposition hospice, home (50) | DRG 951 ==
LOC: ER 05:11 → ERHOLD 05:12 → MEDS 05:12 → ENPENDDIS 05-04 11:57 → MEDS 05-04 13:27
PROVIDERS: Emergency Medicine; Internal Medicine; Nurse Practitioner Acute Care; ADMIT Internal Medicine
DX: Z51.5 Encounter for palliative care (principal); C79.11 Secondary malignant neoplasm of bladder; N13.30 Unspecified hydronephrosis; C66.1 Malignant neoplasm of right ureter; N18.4 Chronic kidney disease, stage 4 (severe); E87.1 Hypo-osmolality and hyponatremia; Z20.822 Contact with and (suspected) exposure to COVID-19; G89.3 Neoplasm related pain (acute) (chronic); E78.5 Hyperlipidemia, unspecified; K21.9 Gastro-esophageal reflux disease without esophagitis; Z66 Do not resuscitate; E11.42 Type 2 diabetes mellitus with diabetic polyneuropathy; I25.10 Atherosclerotic heart disease of native coronary artery without angina pectoris; F32.A Depression, unspecified; H91.90 Unspecified hearing loss, unspecified ear; E11.22 Type 2 diabetes mellitus with diabetic chronic kidney disease; D63.0 Anemia in neoplastic disease; I12.9 Hypertensive chronic kidney disease with stage 1 through stage 4 chronic kidney disease, or unspecified chronic kidney disease; Z88.5 Allergy status to narcotic agent; Z79.4 Long term (current) use of insulin; Z79.82 Long term (current) use of aspirin; Z79.899 Other long term (current) drug therapy
CPT/HCPCS: 36415; 51798; 74176; 80048; 80053; 82947; 85014; 85018; 85025; 94760; 96374; 96375; 96376; 99285-25; A9270; G0378; J1170; J1885; J2060; J2405; J3010; J7030; U0004